=== PATIENT | male | born 1965 | race Hispanic/Latino ===

== ENCOUNTER 2023-05-05 06:44 | Day surgery (SDC) | payer OTHER ==
[2023-05-03 16:16] LABS: BASOPHILS # (AUTO) 0.04 K/uL (0.00-0.20); BASOPHILS % (AUTO) 0.6 % (0.0-5.0); EOSINOPHILS # (AUTO) 0.19 K/uL (0.00-0.70); EOSINOPHILS % (AUTO) 2.7 % (0.0-8.0); HEMATOCRIT 45.3 % (42-54); IMMATURE GRANULOCYTE ABSOLUTE 0.01 K/uL (0-1); LYMPHOCYTES # (AUTO) 2.4 K/uL (1.0-4.8); LYMPHOCYTES % (AUTO) 33.8 % (21.0-51.0); MEAN CORPUSCULAR HEMOGLOBIN 32.8 pg (27.0-33.0); MEAN CORPUSCULAR VOLUME 96.6 fL (79-99); MONOCYTES # (AUTO) 0.7 K/uL (0.1-1.0); MONOCYTES % (AUTO) 10.3 % (3.0-13.0); NEUTROPHILS # (AUTO) 3.7 K/uL (1.8-7.7); NEUTROPHILS % (AUTO) 52.5 % (40.0-77.0); PLATELET COUNT (AUTO) 201 K/uL (130-400); RED BLOOD CELL COUNT(AUTO) 4.69 MIL/uL (4.50-6.20); RED CELL DISTRIBUTION WIDTH 13.2 % (11.0-15.5); WHITE BLOOD COUNT (AUTO) 7.1 K/uL (4.8-10.8)
[2023-05-03 16:17] VITALS: BP 121/82; PULSE 60; RESP 17
[2023-05-03 16:41] LABS: POTASSIUM 4.9 mmol/L (3.5-5.1)
[2023-05-05] VITALS (17 sets, daily range): BP systolic 103–125; BP diastolic 56–75; PULSE 71–99; RESP 12–17
[~2023-05-05] VITALS: Ht 170.2 cm; Wt 112.6 kg
[~2023-05-05 06:44] MED LIST: AEC81 PO; BUSP15TA3 PO; CINNAMON PO; GLUCOSAMINE PO; LISI40TA9 PO; MAGNESIUM PO; MENS VITAMIN PO; SIMV80TA91 PO; TRAZ-185 PO; VITAMIN B12 PO
[2023-05-05] MEDS ORDERED: CLINDAMYCIN IVPB 900MG/50ML 50 ML IV ONE (07:00)
[2023-05-05] MEDS ORDERED: LACTATED RINGERS 1000ML 1,000 ML IV ONE (07:00)
[2023-05-05] MEDS ORDERED: BUPIVACAINE/PF 0.25% 30ML VIAL IJ ONE ×2 (08:22→09:35)
[2023-05-05] MEDS ORDERED: DEXAMETHASONE SOD PHOSPHATE 4 MG/ML 1ML VIAL ONE (08:32)
[2023-05-05] MEDS ORDERED: LIDOCAINE PF 100MG/5ML (2%) SYRINGE 5ML ONE (08:32)
[2023-05-05] MEDS ORDERED: PROPOFOL 10 MG/ML 20ML VIAL IV ONE (08:32)
[2023-05-05] MEDS ORDERED: FENTANYL CITRATE PF 50 MCG/1 ML 2ML VIAL ONE ×2 (08:33→10:36)
[2023-05-05] MEDS ORDERED: MIDAZOLAM HCL 1 MG/ML 2ML VIAL ONE (08:33)
[2023-05-05] MEDS ORDERED: ROCURONIUM 10MG/1ML SYR 10 MG/ML ML ONE (09:03)
[2023-05-05] MEDS ORDERED: EPHEDRINE SULFATE 50 MG/ML AMPULE ONE (09:28)
[2023-05-05] MEDS ORDERED: 0.9%NACL 10ML VIAL ONE (10:14)
[2023-05-05] MEDS ORDERED: ROPIVACAINE 0.5% 5MG/ML 30ML IJ ONE (10:14)
[2023-05-05] MEDS ORDERED: NEOSTIGMINE 5MG/5ML SYR IV ONE (10:15)
[2023-05-05] MEDS ORDERED: GLYCOPYRROLATE 1 MG/5 ML SYRINGE ONE (10:15)
[2023-05-05] MEDS ORDERED: ONDANSETRON 4MG INJ ONE (10:15)
[2023-05-05] MEDS ORDERED: LIDOCAINE 2%-EPI 1:200,000 20 ML VIAL IJ ONE (10:20)
== END 2023-05-05 12:53 | disposition home or self-care (01) ==
LOC: DAH 06:44
PROVIDERS: ATTEND Surgery
DX: K40.20 Bilateral inguinal hernia, without obstruction or gangrene, not specified as recurrent (principal); D17.6 Benign lipomatous neoplasm of spermatic cord; I10 Essential (primary) hypertension; E78.5 Hyperlipidemia, unspecified; I25.10 Atherosclerotic heart disease of native coronary artery without angina pectoris; K21.9 Gastro-esophageal reflux disease without esophagitis; Z87.891 Personal history of nicotine dependence; Z72.89 Other problems related to lifestyle; Z82.49 Family history of ischemic heart disease and other diseases of the circulatory system; Z83.3 Family history of diabetes mellitus; Z80.9 Family history of malignant neoplasm, unspecified; Z79.899 Other long term (current) drug therapy; Z79.82 Long term (current) use of aspirin
CPT/HCPCS: 49650; S2900; 36415; 80048; 85025; A4344; J1100; J2001; J2250; J2405; J2704; J2710; J2795; J3010; J3490; J7030; J7120; A4215; A4221; A4222; A4600; A4663; A6260; C1781; G0168